=== PATIENT | male | born 1975 | race Hispanic/Latino ===

== ENCOUNTER 2024-01-30 11:43 | Emergency (ER) | payer SELFPAY ==
[~2024-01-30] VITALS: Ht 165.1 cm; Wt 81.6 kg
[2024-01-30 11:45] VITALS: BP 147/90; PULSE 98; RESP 20; TEMP 98.6
--- NOTE | 2024-01-30 11:50 | ERN ---
ED Note History of Present Illness Stated Complaint: PAIN WITH URINATION Chief Complaint: UTI without Fever Time Seen by MD: 11:45 Dictation: PATIENT IS A 48-YEAR-OLD MALE COMING IN TODAY WITH PAINFUL URINATION FOR TWO DAYS. NO FEVER NO CHILLS NO NAUSEA VOMITING NO FLANK PAIN. STATES HE WAS SEEN AT [facility] YESTERDAY AND WAS TOLD HE HAD A URINARY TRACT INFECTION WAS GIVEN A SHOT HOWEVER NO ANTIBIOTICS WERE PRESCRIBED. HE IS CURRENTLY AT [facility] AND THEY ARE BRINGING HIM HERE NOW FOR A 2ND O BARBIE AND DEFINITIVE TREATMENT FOR HIS UTI Past Medical History RN Note Reviewed/Agreed w/PFSH: Yes Review of System Dictation CONSTITUTIONAL: NEGATIVE EXCEPT FOR HPI HEAD/FACE: NEGATIVE EXCEPT FOR HPI EENT: NEGATIVE EXCEPT FOR HPI RESPIRATORY: NEGATIVE EXCEPT FOR HPI GASTROINTESTINAL/ABDOMINAL: NEGATIVE EXCEPT FOR HPI GENITOURINARY: NEGATIVE EXCEPT FOR HPI DYSURIA MUSCULOSKELETAL: NEGATIVE EXCEPT FOR HPI INTEGUMENTARY: NEGATIVE EXCEPT FOR HPI NEUROLOGICAL/PSYCH: NEGATIVE EXCEPT FOR HPI HEMATOLOGIC/LYMPHATIC: NEGATIVE EXCEPT FOR HPI ALL SYSTEMS NEGATIVE, EXCEPT NOTED ABOVE. 13 POINT REVIEW OF SYSTEMS ASSESSED AND ALL NEGATIVE EXCEPT FOR ABOVE. Initial Vital Sign VS Vital Signs Date Time Temp Pulse Resp B/P (MAP) Pulse Ox O2 Delivery O2 Flow Rate FiO2 01/30/24 11:45 98.6 98 20 147/90 98 Room Air Physical Exam Dictation VITAL SIGNS REVIEWED MILD ACUTE DISTRESS, WELL DEVELOPED, NOURISHED. HEAD AND FACE: NON-TRAUMATIC. EYES: PERRL, PINK CONJUNCTIVAS, EYELID NO TRAUMA, ANTERIOR CHAMBER WITH ARCUS SENILIS. EARS: PINNAS INTACT AND NO SIGNS OF TRAUMA OR ERYTHEMA EAR CANALS CLEAR AND NO DISCHARGE TM NO ERYTHEMA NOSE: NO DISCHARGE, NO BLEEDING. OROPHARYNX: MOUTH NORMAL, TONGUE PINK, PHARYNX CLEAR,NO ERYTHEMA, TONSILS NO EXUDATES, NO ABSCESSES NOTED, MUCOUS MEMBRANE MOIST NECK: SUPPLE, NON-TENDER, NO THYROMEGALY, NO MASSES, NO JVD, NO BRUITS BREAST:DEFERRED CHEST:NO TENDERNESS, NO CREPITUS, NO PARADOXICAL MOVEMENT, NO RETRACTIONS LUNGS:CLEAR, WELL-VENTILATED, SYMMETRIC, NO RALES, NO WHEEZING, NO RHONCHI, NO STRIDOR, GOOD BREATH SOUNDS BILATERALLY HEART: REGULAR RATE, REGULAR RHYTHM, NO MURMUR, NO GALLOPS VASCULAR: NO PERIPHERAL EDEMA, ABDOMEN: SOFT, POSITIVE BOWEL SOUNDS, NONDISTENDED, NO GUARDING, NONTENDER, NO REBOUND, NO MASSES NO HEPATOMEGALY, NO SPLENOMEGALY, NO AQUINO'S SIGN, NO HERNIAS. RECTAL: DEFERRED GENITAL: DEFERRED NEUROLOGICAL: NORMAL SPEECH, MOTOR FUNCTION INTACT, SENSORY FUNCTION INTACT MUSCULOSKELETAL: NECK NONTENDER, FULL RANGE OF MOTION, BACK NONTENDER, FULL RANGE OF MOTION, EXTREMITIES: NONTENDER, FULL RANGE OF MOTION SKIN: COLOR PINK, DRY, NO TURGOR, NO RASH, NO LACERATIONS, NO ABRASIONS, NO CONTUSIONS. LYMPHATIC: DEFERRED Results (Laboratory/Radiology) Laboratory/Radiology Laboratory Tests Test 01/30/24 12:50 Urine Color LIGHT-YELLOW (YELLOW) Urine Appearance CLEAR (CLEAR) Urine pH 7.0 (5.0-8.0) Urine Specific [place] 1.020 (1.001-1.031) Urine Protein NEGATIVE mg/dL (NEGATIVE) Urine Glucose (UA) NEGATIVE mg/dL (NEGATIVE) Urine Ketones NEGATIVE mg/dL (NEGATIVE) Urine Occult Blood +- (TRACE) (NEGATIVE) H Urine Nitrate NEGATIVE (NEGATIVE) Urine Bilirubin NEGATIVE mg/dL (NEGATIVE) Urine Urobilinogen 2.0 mg/dL (0.2-1.0) H Urine Leukocyte Esterase NEGATIVE Faisal/uL Urine RBC 2-5 /HPF (0-1) H Urine WBC 0-1 /HPF (0-1) Urine Bacteria None /HPF (None Seen) Labs Reviewed?: Yes ED Course ED Course Orders Procedure Category Date Status Time Urinalysis Profile LAB 01/30/24 Complete 11:48 Ibuprofen 800 Mg Tab PHA 01/30/24 Complete (Motrin) 12:00 Phenazopyridine Hcl PHA 01/30/24 Complete 200 Mg Tab (Pyridium 12:00 Current Medications Medications (Trade) Dose Ordered Sig/Debra Route PRN Reason Start Time Stop Time Status Last Admin Dose Admin Ibuprofen (moTRIN) 800 mg ONCE ONCE PO 01/30/24 12:00 01/30/24 12:01 DC 01/30/24 12:25 Phenazopyridine HCl (PYRIdium HCL 200 MG TAB) 200 mg ONCE ONCE PO 01/30/24 12:00 01/30/24 12:01 DC 01/30/24 12:25 Vital Signs Date Time Temp Pulse Resp B/P (MAP) Pulse Ox O2 Delivery O2 Flow Rate FiO2 01/30/24 11:45 98.6 98 20 147/90 98 Room Air 355 PATIENT DISCHARGED BACK TO [facility] IF HE EVER WITH DIAGNOSIS OF HEMATURIA AND GIVEN PYRIDIUM. THERE IS Medical Decision Making MDM MEDICAL DISCHARGE MAKING BASED ON URINALYSIS ONLY PATIENT HAS HEMATURIA ONLY, NO CYSTITIS OR INFECTION DISCHARGED HOME WITH PYRIDIUM DX & DISP Disposition: Discharge Departure Impression: Primary Impression: Hematuria Additional Impression: Dysuria Condition: Stable Scripts Phenazopyridine HCl (Pyridium) 200 Mg Tablet 200 MG PO TID for painful urination, #10 TAB 0 Refills Prov: AG JACKSON NP 01/30/24 Additional Instructions: FOLLOW-UP WITH PRIMARY CARE PROVIDER IN 1 TO 2 DAYS. TAKE MEDICATIONS DIRECTED HERE IN THE EMERGENCY ROOM. OKAY TO CONTINUE HOME MEDICATIONS UNLESS OTHERWISE DISCUSSED DURING YOUR VISIT IN THE EMERGENCY ROOM TODAY. RETURN TO YOUR NEAREST EMERGENCY ROOM IF SYMPTOMS WORSEN OR IF THERE IS NO IMPROVEMENT. CALL 911 IF YOU NEED IMMEDIATE ASSISTANCE. TAKE TYLENOL OR MOTRIN [id number] NEEDED AND IF NO CONTRAINDICATIONS ARE PRESENT. INCREASE ORAL HYDRATION. A WOUND CULTURE OR URINE CULTURE WAS ORDERED HERE IN THE EMERGENCY ROOM DEPARTMENT PLEASE FOLLOW-UP WITH PRIMARY CARE PROVIDER AND ADVISE THEM TO GET REPEAT PORTS FROM OUR FACILITY. IF YOU HAD ANY JYOTSNA WRAP/SPLINTS THAT WERE APPLIED HERE, PLEASE DO NOT REMOVE THEM UNTIL YOU SEE YOUR PRIMARY CARE OR SPECIALTY. TAKE PYRIDIUM DIRECTED FOR BLADDER SPASM. REMEMBER THE PYRIDIUM WILL TURN YOUR URINE ORANGE RED AND YOU ARE NOT BLEEDING. INCREASE YOUR WATER INTAKE. SEE YOUR PRIMARY CARE DOCTOR FOR FOLLOW UP Referrals: AUSTIN MANZO MD (PCP) Time of Disposition: 13:56 I have reviewed the case, and I agree with, Diagnosis and Plan AG JACKSON NP Jan 30, 2024 11:50
[2024-01-30] MEDS: ibuPROFEN 800 MG TAB PO ONE (12:25)
[2024-01-30] MEDS: PHENAZOpyridine HCL 200 MG TAB 200 MG TABLET PO ONE (12:25)
[2024-01-30 13:52] LABS: ADD UA MICROSCOPIC YES
[2024-01-30 13:53] LABS: APPEARANCE,URINE CLEAR (CLEAR); BILIRUBIN,URINE NEGATIVE (NEGATIVE); COLOR,URINE LIGHT-YELLOW (YELLOW); GLUCOSE, URINE (UA) NEGATIVE (NEGATIVE); KETONES,URINE NEGATIVE (NEGATIVE); LEUKOCYTE ESTERASE ,URINE NEGATIVE Leu/uL (NEGATIVE); MUCUS,URINE RARE LPF (None Seen); NITRATE,URINE NEGATIVE (NEGATIVE); PROTEIN,URINE NEGATIVE (NEGATIVE); WBC,URINE 0-1 /HPF (0-1)
[2024-01-30] MEDS ORDERED: PHEN-776 PO (13:57)
== END 2024-01-30 14:28 | disposition home or self-care (01) ==
LOC: EDH 11:43
DX: R31.9 Hematuria, unspecified (principal); R30.0 Dysuria
CPT/HCPCS: 81001; 99283